=== PATIENT | male | born 1960 | race Caucasian/White ===

== ENCOUNTER 2017-07-12 14:35 | Emergency (ER) | payer SELFPAY ==
[2017-07-12] MEDS: ONDANSETRON 4 MG INJ IV (19:58)
[2017-07-12] MEDS: morphine 2 MG INJ IV (19:58)
[2017-07-12 19:59] LABS: ADD MAN DIFF? NO
[2017-07-12 20:02] LABS: BASOPHILS % 0.5 % (0.0-2.0); EOSINOPHILS # 0.1 10^3/ul (0.0-0.5); EOSINOPHILS % 1.8 % (0.0-7.0); HEMATOCRIT 41.4 % (42.0-52.0); HEMOGLOBIN 13.7 g/dl (14.0-18.0); LYMPHOCYTES # 2.1 10^3/ul (0.8-2.9); LYMPHOCYTES % 37.4 % (15.0-51.0); MEAN CORPUSCULAR HEMOGLOBIN 28.3 pg (29.0-33.0); MEAN CORPUSCULAR HGB CONC 33.1 g/dl (32.0-37.0); MEAN CORPUSCULAR VOLUME 85.5 fl (82.0-101.0); MEAN PLATELET VOLUME 9.1 fl (7.4-10.4); MONOCYTE # 0.8 10^3/ul (0.3-0.9); MONOCYTES % 14.8 % (0.0-11.0); NEUTROPHIL # 2.5 10^3/ul (1.6-7.5); NEUTROPHILS % 45.1 % (39.0-77.0); PLATELET COUNT 320 10^3/UL (140-415); RED BLOOD COUNT 4.84 10^6/ul (4.70-6.10); RED CELL DISTRIBUTION WIDTH 16.2 % (11.5-14.5)
[2017-07-12 20:02] LABS: WHITE BLOOD COUNT 5.6 10^3/ul (4.8-10.8)
[2017-07-12 20:17] LABS: INR 0.97
[2017-07-12 20:18] LABS: PARTIAL THROMBOPLASTIN TIME 32.7 Sec (25.0-35.0)
[2017-07-12 20:21] LABS: ALANINE AMINOTRANSFERASE 42 IU/L (13-69); ALBUMIN 4.1 g/dl (3.3-4.9); ALBUMIN/GLOBULIN RATIO 1.24; ALKALINE PHOSPHATASE 82 IU/L (42-121); AMYLASE 61 U/L (11-123); ANION GAP 13 (8-16); ASPARTATE AMINO TRANSFERASE 41 IU/L (15-46); BILIRUBIN,INDIRECT 0.5 mg/dl (0-1.1); BILIRUBIN,TOTAL 0.5 mg/dl (0.2-1.3); BLOOD UREA NITROGEN 30 mg/dl (7-20); CALCIUM 10.1 mg/dl (8.4-10.2); CARBON DIOXIDE 32 mmol/L (21-31); CHLORIDE 97 mmol/L (97-110); CREATININE 0.65 mg/dl (0.61-1.24); GLUCOSE 91 mg/dl (70-220); LIPASE 62 U/L (23-300); POTASSIUM 3.3 mmol/L (3.5-5.1); TOTAL PROTEIN 7.4 g/dl (6.1-8.1)
[2017-07-12 20:42] LABS: SODIUM 139 mmol/L (135-144)
[2017-07-12] MEDS: SOD CHLORIDE 0.9% 100 ML (20:49)
[2017-07-12] MEDS: IOHEXOL 300MG/ML 150 ML BTL (20:49)
== END 2017-07-13 00:41 | disposition home or self-care (01) ==
LOC: E/R 14:35
DX: R10.32 Left lower quadrant pain (principal); Z93.1 Gastrostomy status
CPT/HCPCS: 74177; 80053; 82150; 83690; 85025; 85610; 85730; 96374; 96375; 99285-25